=== PATIENT | male | born 1965 | race Hispanic/Latino ===

== ENCOUNTER 2017-04-06 15:22 | Day surgery (SDC) | payer BC, OTHER ==
[2017-04-06] MEDS ORDERED: Cyclopentolate 1% Opth Drop 2 ML BOT ONE (15:53)
[2017-04-06] MEDS ORDERED: Phenylephrine 2.5% Ophth Soln 5 ML BOT ONE (15:53)
[2017-04-06] MEDS ORDERED: Fluorouracil 100 MG, Enoxaparin Sodium 25 MG, EPINEPHrine 0.3 MG in Ophthalmic Irrigati... IVPB SCH (16:02)
[2017-04-06] MEDS ORDERED: Fentanyl 100 MCG/2 ML VIAL ONE (17:15)
[2017-04-06] MEDS ORDERED: Midazolam HCl 2 mg/2 ml Vial ONE (17:15)
[2017-04-06] MEDS ORDERED: PHENYLEPHRINE-NS 100 MCG/ML 10 ML SYRINGE ONE (17:24)
[2017-04-06] MEDS ORDERED: Dexamethasone 20 MG/5 ML VIAL ONE (17:24)
[2017-04-06] MEDS ORDERED: Propofol 200 MG/20 ML VIAL ONE (17:24)
[2017-04-06] MEDS ORDERED: Lidocaine 2% MPF 10 ML AMP (For Epidural Use) ONE (17:24)
[2017-04-06] MEDS ORDERED: ePHEDrine/0.9% NaCl/PF SYRINGE 50 mg/10 ml ONE (17:24)
[2017-04-06] MEDS ORDERED: Glycopyrrolate 0.2 MG/ML 5 ML SYRINGE ONE (17:24)
[2017-04-06] MEDS ORDERED: Ondansetron HCl/PF 4 MG/2 ML Vial ONE (17:24)
[2017-04-06] MEDS ORDERED: Diprivan 20 ML ONE (17:34)
--- NOTE | 2017-04-06 19:40 | OP ---
DATE OF PROCEDURE: 04/06/2017 PREOPERATIVE DIAGNOSIS: Rhegmatogenous retinal detachment, right eye. POSTOPERATIVE DIAGNOSIS: Rhegmatogenous retinal detachment, right eye. SURGEON: Leonard Ramirez M.D. ANESTHESIA: General endotracheal anesthesia. PROCEDURE IN DETAIL: The patient was identified in the preoperative holding area. Appropriate info rmed consent for the planned surgical procedure on the right eye had been obtained. The patient was transported to the operative suite where appropriate cardiopulmonary monitoring was established and general endotracheal anesthesia was initiated. Retrobulbar block was placed. The patient was prep ped and draped in the usual sterile manner for ophthalmic surgery on the right eye. Lid speculum wa s placed in the right eye. The 25-gauge trocars were placed in conjunctiva and sclera superotempora lly, inferotemporally, and superonasally. Infusion line was placed inferotemporally. Light pipe an d vitreous cutter were inserted into the eye. Core of vitrectomy was performed. A vitreous based d issection was performed using wide field viewing system. A tear was found at the 1:30 o'clock posit ion. All traction was removed from the tear. Posterior drain retinotomy was created inferior to th e nerve. Choroidals were noted nasally and superiorly. Complete air fluid exchange was performed w ith 10 minutes being allowed for fluid to drain posteriorly. Star fold was noted inferior temporall y. This flattened adequately under air. Choroidals were noted to be shallow. A 360 laser was plac ed using Endolaser delivery device. A 15% perfluoropropane gas was infused into the eye and sclerot beverley was sutured closed with 7-0 Vicryl suture. Retrobulbar Kenalog and subconjunctival Ancef were p laced. Atropine and antibiotic ointment were placed and the eye was patched and shielded. The trisha ent was taken to the postoperative recovery unit in good condition suffered no immediate perioperati ve complications. The patient was advised to position the right side down and follow up in the [facility] with Dr. Ramirez.
== END 2017-04-06 20:09 | disposition home or self-care (01) ==
LOC: SDC 15:22
PROVIDERS: ATTEND Ophthalmology Retina Specialist
PROC: 08T43ZZ Resection of Right Vitreous, Percutaneous Approach (ICD-10-PCS; principal; 2017-04-06)
DX: H33.021 Retinal detachment with multiple breaks, right eye (principal)
CPT/HCPCS: 67025; J0171; J1100; J1650; J2001; J2250; J2405; J2704; J3010; J9190

== ENCOUNTER 2017-07-12 09:13 | Day surgery (SDC) | payer BC, OTHER ==
[2017-07-11 14:29] VITALS: BMI 29.1
[~2017-07-12 09:13] MED LIST: Cyclopentolate 1% Opth Drop 2 ML BOT FS SCH; Fluorouracil 100 MG, Enoxaparin Sodium 25 MG, EPINEPHrine 0.3 MG in Ophthalmic Irrigati... IVPB SCH; Phenylephrine 2.5% Ophth Soln 5 ML BOT FS SCH
[2017-07-12] MEDS ORDERED: Phenylephrine 2.5% Ophth Soln 5 ML BOT ONE (09:43)
[2017-07-12] MEDS ORDERED: Cyclopentolate 1% Opth Drop 2 ML BOT ONE (09:43)
[2017-07-12] MEDS ORDERED: Diprivan 20 ML ONE (11:21)
[2017-07-12] MEDS ORDERED: Midazolam HCl 2 mg/2 ml Vial ONE (11:21)
[2017-07-12] MEDS ORDERED: Fentanyl 100 MCG/2 ML VIAL ONE (11:21)
[2017-07-12] MEDS ORDERED: Ondansetron HCl/PF 4 MG/2 ML Vial ONE (11:21)
[2017-07-12] MEDS ORDERED: Promethazine HCl 25 MG/ML VIAL ONE (15:41)
--- NOTE | 2017-07-12 16:17 | OP ---
DATE OF PROCEDURE: 07/22/2017 PREOPERATIVE DIAGNOSIS: Tractional retinal detachment, right eye. POSTOPERATIVE DIAGNOSIS: Tractional retinal detachment, right eye. PROCEDURE: Pars plana vitrectomy, scleral buckle, silicone oil placement, right eye. SURGEON: Leonard Ramirez M.D. ANESTHESIA: General endotracheal. PROCEDURE IN DETAIL: The patient was identified in the preoperative holding area. [facility] for the planned surgical procedure on the right eye had been obtained. The patient was t ransported to the operative suite where appropriate cardiopulmonary monitoring was established. Gene ral endotracheal anesthesia was initiated. The patient was prepped and draped in the usual sterile m marino for ophthalmic surgery on the right eye. Lid speculum was placed in the right eye. A 507 G sp onge was encircled on the inferior 6 o'clock hours and fixated in place with four 5-0 mersilene sutur es. Trocars were placed supratemporally, inferotemporally, and supranasally. Infusion line was plac ed inferotemporally. Light pipe and vitreous cutter were inserted into the eye. Residual vitreous w as removed. Dense epiretinal membrane was noted across the entire posterior pole. Indocyanine green dye was infused the posterior pole. An edge of the membrane was identified, lifted and the membrane was peeled using end griping forceps. Star fold was still present, inferior temporally, which did n ot flatten. The retinectomy was created over Star fold flattening the retina. Complete air fluid ex change was performed with 10 minutes being allowed for fluid to drain posteriorly. The retina was fl attened in this case in all quadrants, laser was placed at 360 degrees behind and on the buckle eleme nts and superiorly. Silicone oil was infused into the eye. All sclerotomies were sutured closed. C onjunctiva closed with 6-0 plain gut suture. Retrobulbar Kenalog and subconjunctival Ancef were plac ed. Antibiotic ointment was placed and the eye was patched and shielded. The patient was taken to [facility] postoperative recovery unit in good condition having suffered no immediate perioperative complicat ions. DISCHARGE INSTRUCTIONS: The patient was instructed to keep patch and shield on, avoid lifting or rudy ding, position left side down, and follow up in the morning with Dr. Ramirez.
== END 2017-07-12 18:05 | disposition home or self-care (01) ==
LOC: SDC 09:13
PROVIDERS: ATTEND Ophthalmology Retina Specialist
PROC: 08U00JZ Supplement of Right Eye with Synthetic Substitute, Open Approach (ICD-10-PCS; principal; 2017-07-12)
PROC: 08NE3ZZ Release Right Retina, Percutaneous Approach (ICD-10-PCS; principal; 2017-07-12)
PROC: 08B43ZZ Excision of Right Vitreous, Percutaneous Approach (ICD-10-PCS; principal; 2017-07-12)
DX: H33.41 Traction detachment of retina, right eye (principal); Z98.41 Cataract extraction status, right eye; Z98.42 Cataract extraction status, left eye; Z98.890 Other specified postprocedural states
CPT/HCPCS: 96374; 96375; C1814; J0171; J1650; J2250; J2270; J2405; J2550; J2704; J3010; J9190

== ENCOUNTER 2018-08-15 07:25 | Day surgery (SDC) | payer BC, OTHER ==
[2018-08-14 11:49] VITALS: BMI 27.4
[~2018-08-15 07:25] MED LIST changes: +Fentanyl 100 MCG/2 ML VIAL ONE; +Fluorouracil 100 MG, Enoxaparin Sodium 25 MG, EPINEPHrine 0.3 MG in Ophthalmic Irrigati... FS SCH; -Fluorouracil 100 MG, Enoxaparin Sodium 25 MG, EPINEPHrine 0.3 MG in Ophthalmic Irrigati... IVPB SCH; +Midazolam HCl 2 mg/2 ml Vial ONE
[2018-08-15] MEDS ORDERED: Phenylephrine 2.5% Ophth Soln 5 ML BOT ONE (07:56)
[2018-08-15] MEDS ORDERED: Cyclopentolate 1% Opth Drop 2 ML BOT ONE (07:57)
[2018-08-15] MEDS ORDERED: PROPOFOL 200 MG/20 ML VIAL ONE (12:26)
[2018-08-15] MEDS ORDERED: Lidocaine 1% PF 5 ML VIAL ONE ×2 (12:26→12:27)
[2018-08-15] MEDS ORDERED: Ondansetron PF 4 MG/2 ML Vial ONE (12:26)
[2018-08-15] MEDS ORDERED: Lidocaine 4% PF 5 ML AMP ONE (12:26)
[2018-08-15] MEDS ORDERED: Bupivacaine 0.75% 10 ML AMP ONE (12:26)
[2018-08-15] MEDS ORDERED: Indocyanine Green 25 MG/10 ML VIAL ONE (12:26)
[2018-08-15] MEDS ORDERED: ePHEDrine 50 MG/ML VIAL ONE (12:26)
[2018-08-15] MEDS ORDERED: CEFAZOLIN 1 GM VIAL ONE (12:27)
[2018-08-15] MEDS ORDERED: Atropine Sulfate 1% Ophth Ointment 3.5 gm Tube ONE (12:27)
[2018-08-15] MEDS ORDERED: Maxitrol 0.1% Opth Oint 3.5 GM TUBE ONE (12:27)
[2018-08-15] MEDS ORDERED: Triamcinolone 40 MG/ML VIAL ONE (12:27)
--- NOTE | 2018-08-22 15:26 | OP ---
DATE OF PROCEDURE: 08/15/2018 PREOPERATIVE DIAGNOSES: Tractional retinal detachment, vitreous opacification. POSTOPERATIVE DIAGNOSES: Tractional retinal detachment, vitreous opacification. PROCEDURES PERFORMED: Pars plana vitrectomy, tractional retinal detachment repair, right eye. ANESTHESIA: General endotracheal anesthesia. PROCEDURE IN DETAIL: The patient was identified in the preoperative holding area. Appropriate informed consent for the planned surgical procedure on the right eye had been obtained. The patient was transported to the operative suite where general endotracheal anesthesia was then initiated. A retrobulbar block was placed. The patient was prepped and draped in usual sterile manner for ophthalmic surgery on the right eye. Lid speculum was placed in the right eye. A 25-gauge trocar was placed through the conjunctivae and sclera superotemporally, inferotemporally, and superonasally. Infusion line was placed inferotemporally. Light pipe vitreous cutter inserted into the eye. Core vitrectomy was performed. Viscous fluid was removed from the vitreous cavity using viscous fluid removal device. Attention was turned to the inferior traction where several subretinal bands noted inferiorly causing traction that was extending into the lower macular area. Small retinectomies were mated at the 5 o'clock and 8 o'clock positions and subretinal traction bands were removed. Laser was placed around the retinectomy sites. Complete air-fluid exchange was performed. Perfluoropropane gas was infused into the eye and sclerotomy was suture closed. Retrobulbar Kenalog and subconjunctival Ancef were placed. Antibiotic ointment was placed and the eye was patched and shielded. The patient was awakened, taken to postop recovery unit in good condition, having suffered no immediate perioperative complications. The patient was advised to position right or left side down with lifting or bending, followup appointment with Dr. Ramirez. Job ID: [id number]
== END 2018-08-15 13:45 | disposition home or self-care (01) ==
LOC: SDC 07:25
PROVIDERS: ATTEND Ophthalmology Retina Specialist
PROC: 08T43ZZ Resection of Right Vitreous, Percutaneous Approach (ICD-10-PCS; principal; 2018-08-15)
DX: H33.41 Traction detachment of retina, right eye (principal); H43.391 Other vitreous opacities, right eye
CPT/HCPCS: 67025; J0171; J0690; J1650; J2001; J2250; J2405; J2704; J3010; J3301; J3490; J9190